=== PATIENT | male | born 1960 | race Caucasian/White ===

== ENCOUNTER 2017-03-15 20:16 | Emergency (ER) | payer SELFPAY ==
--- NOTE | 2017-03-15 20:30 | NUR ---
PATIENT LEFT WITHOUT BEING SEEN BY DR. WATKINS. NO FURTHER CARE PROVIDED FOR PATIENT.
== END 2017-03-15 20:30 | disposition left against medical advice (07) ==
LOC: MED 20:16
DX: Z53.21 Procedure and treatment not carried out due to patient leaving prior to being seen by health care provider (principal)